=== PATIENT | female | born 1950 | race Caucasian/White ===

== ENCOUNTER 2017-04-14 06:55 | Inpatient (IN) | payer MEDICARE ==
[2017-04-03 16:39] LABS: ASCORBIC ACID (UR NOT ORDER) NEG (NEG); BILIRUBIN, URINE NEGATIVE (NEG); KETONE, URINE NEGATIVE (NEG); LEUKOCYTE ESTERASE(NOT OR TRACE (NEG); WBC (NOT ORDERED) (RFLEX) < 1 (0-5)
[2017-04-03 17:22] LABS: BASOPHILS 0.2 %; BASOPHILS ABSOLUTE 0.02 10/3/uL (0.0-0.16); EOSINOPHILS 2.2 %; HEMATOCRIT 40.9 % (36.0-48.0); HEMOGLOBIN 12.9 g/dL (12.0-16.0); IMMATURE GRANULOCYTES 0.2 %; IMMATURE GRANULOCYTES ABSOLUTE 0.02 10/3/uL (0.0-0.11); LYMPHOCYTES 35.3 %; MEAN CORPUS HGB CONC 31.5 g/dL (32.0-36.0); MEAN CORPUSCULAR HEMOGLOB 27.7 pg (26.0-34.0); MEAN CORPUSCULAR VOLUME 87.8 fL (80-100); MEAN PLATELET VOLUME 9.4 fL (9.2-13.0); MONOCYTES 7.3 %; MONOCYTES ABSOLUTE 0.66 10/3/uL (0.21-1.20); NEUTROPHILS 54.8 %; NEUTROPHILS ABSOLUTE 4.96 10/3/uL (2.02-8.40); PLATELET COUNT 268 10/3/uL (150-400); RBC DISTRIBUTION WIDTH 14.1 % (12.0-16.0); RED CELL COUNT 4.66 10/6/uL (4.0-5.6); WHITE BLOOD CELLS 9.1 10/3/uL (4.5-10.5)
[2017-04-03 17:24] LABS: MANUAL DIFF NO %
[2017-04-03 17:26] LABS: INTERNATIONAL NORMAL RATI 1.1 UNITS (-); PROTIME (NOT ORD) 14.5 SEC (12.0-14.5)
[2017-04-03 17:40] LABS: % IRON SAT 24 % (20-50); BUN (BLOOD UREA NITROGEN) 15 MG/DL (6-23); CALCIUM, SERUM 9.7 MG/DL (8.5-10.4); CHLORIDE, SERUM 107 MMOL/L (96-112); CO2 (CARBON DIOXIDE) 29 MMOL/L (24-34); CREATININE 0.97 MG/DL (0.55-1.02); GFR AFRICAN AMERICAN 70 ML/MIN (>=60); GFR NON AFRICAN AMERICAN 60 ML/MIN (>=60); GLUCOSE, SERUM 90 MG/DL (60-99); IRON BINDING CAPACITY 376 MCG/DL (225-410); IRON, SERUM 89 MCG/DL (35-150); POTASSIUM, SERUM 4.4 MMOL/L (3.5-5.3); SGOT(AST) 20 U/L (5-40); SGPT(ALT) 27 U/L (5-65); SODIUM, SERUM 142 MMOL/L (135-148); TOTAL BILIRUBIN 0.6 MG/DL (0-1.2); TOTAL PROTEIN 7.3 G/DL (6.0-8.5)
[2017-04-03 17:41] LABS: A/G RATIO 1.2 (0.7-1.9); ALKALINE PHOSPHATASE 120 U/L (45-117); GLOBULIN 3.3 G/DL (2.5-4.1)
--- NOTE | ~2017-04-14 | DS ---
Discharge Summary [facility] [address] [place]. [address] NAME: LO BLUNT : 49 STATUS : DIS IN PAT#: [id number] AGE: 67 ADM/REG DATE : 04/14/17 MR#: [id number] REPORT SERV DATE: 06/28/17 DICTATED BY: YAZMIN FALCON DATE: 06/27/17 REPORT STATUS : Draft TRANSCRIBED BY: TRACEY DATE: 06/27/17 Data Collection from hospitalization DISCHARGE DIAGNOSES: 1. Coronary artery disease. 2. Hyperlipidemia. 3. Hypertension. 4. Peripheral vascular disease. 5. Chronic obstructive pulmonary disease. 6. Gastroesophageal reflux disease. 7. Tobacco use. CONSULTATIONS: 1. Jannie Villa M.D. 2. Zenon Valenzuela M.D. PROCEDURES PERFORMED: Coronary artery bypass grafting x5 with left internal mammary artery to the left anterior descending artery, reverse saphenous vein graft placed to the second diagonal, right internal mammary artery placed to the second obtuse marginal, reverse saphenous vein graft placed to the posterior descending artery, reverse saphenous vein graft placed to the posterolateral branch vessel; bilateral internal mammary artery harvest; endoscopic vein harvest of the saphenous vein from the right leg; and transesophageal echocardiography on 04/14/2017. MEDICATIONS: Xanax 0.5 mg three times a day as needed, vitamin C 1000 mg twice a day, aspirin 81 mg every morning, Lipitor 40 mg at bedtime, Os-Jack Plus D 500 mg daily, vitamin D3 2000 units daily, Plavix 75 mg daily, Pepcid 20 mg twice a day, Lasix 20 mg daily, [place] 5/325 one to two tablets every four hours as needed, levothyroxine 75 mcg daily, Lopressor 12.5 mg daily, MiraLAX powder one packet daily, Klor-Con 20 mEq daily, and Ultram 100 mg three times a day as needed. CONDITION AT DISCHARGE: Stable. DISPOSITION: The patient was discharged home on a low-sodium, low-cholesterol, cardiac diet with activities as instructed. She would follow up with Dr. Zenon Valenzuela on 05/19/2017. She would follow up with Wesley Watson on 06/05/2017. She would follow up for cardiac rehab on 05/31/2017. HOSPITAL COURSE: This is a 66-year-old female who has a significant peripheral vascular disease and had undergone multiple peripheral interventions by Dr. Donald Bender. She was undergoing evaluation for possible left leg bypass. In preparation for this, she underwent a stress test, which revealed abnormalities. She was referred to Dr. Valenzuela and an eventual cardiac catheterization demonstrated severe three-vessel coronary artery disease. Her ventricular function was preserved with an ejection fraction greater than 50%. She had significant complaints of dyspnea with exertion and lower extremity claudication. She does have occasional chest discomfort, which she described as sharp, intermittent, and nonreproducible and noticed it more at night. However, since being started on isosorbide, these symptoms had improved. The patient had undergone echocardiography, which demonstrated Discharge Summary [address] [address] NAME: LO BLUNT : 49 STATUS : DIS IN [facility]#: [id number] AGE: 67 ADM/REG DATE : 04/14/17 MR#: [id number] REPORT SERV DATE: 06/28/17 DICTATED BY: YAZMIN FALCON DATE: 06/27/17 REPORT STATUS : Draft TRANSCRIBED BY: TRACEY DATE: 06/27/17 good ventricular function with no significant valvular pathology. She also underwent pulmonary function testing because she is an active smoker and this actually showed surprisingly good pulmonary function with FEV1 of greater than 2 liters. Treatment options were discussed and it was elected to proceed with surgical intervention. She was admitted to the hospital at this time for further evaluation and treatment. Upon admission, she was taken to the operating room where she underwent the above-mentioned procedure. She tolerated this well, and there were no complications. On postop day #1, she was up sitting in a chair. She was doing well. Chest x-ray showed left pleural effusion, which was unchanged. White count was 14.3. A dose of IV Lasix was given. Blood pressure was well controlled. On 04/16/2017, she was ambulating in the pascual. She was doing well. Chest x-ray showed small left effusion. Lasix and KCl were given. Hemoglobin A1c was 6.1%. Insulin drip continued. Pacing wires and medial chest tubes were discontinued. Blood pressure was well controlled. The patient was seen by Dr. Jannie Villa regarding postop hyperglycemia. She was tolerating her diet. Since surgery, she had been on an insulin drip with very well controlled blood sugar. She does not have a history of diabetes nor does she take any medication. Her hemoglobin A1c was 6.1. Insulin drip was going to be discontinued. Accu-Cheks would be performed before meals and at bedtime. Level 1 sliding scale insulin was going to be provided. Diet and lifestyle modification was discussed extensively with the patient. On 04/17/2017, she was doing well. She was ambulating in the halls. Her dressings were clean, dry, and intact. Blood pressure was well controlled. Lipitor was continued. She was in a normal sinus rhythm. She was seen in consultation by Dr. Zenon Valenzuela. She had no atrial fibrillation/atrial tachycardia. Her blood pressure was controlled. Pain was controlled. She was on aspirin, statin, and Plavix. White count was 11.8. Creatinine level 0.76. INR level was 1.2. The next day, she continued to do well. Chest x-ray showed improvement of the left effusion. She had 1+ pedal edema. Blood pressure was well controlled. Discharge planning was performed. On 04/19/2017, she was alert and cooperative. She had vague episode of discomfort that she said she felt was secondary to taking a lot of deep breaths. She was in a sinus rhythm. Her lungs were clear. Discharge instructions were given. Due to her improved and stable condition, she was discharged home to be followed by home health care with the above-stated instructions. Information collected by: Debby Huang I submit the above information as my discharge summary. TG/MODL Yazmin Falcon M.D. / [id number] CC: Elif Powers M.D. Discharge Summary [address] [address] NAME: LO BLUNT : 49 STATUS : DIS IN PAT#: [id number] AGE: 67 ADM/REG DATE : 04/14/17 MR#: [id number] REPORT SERV DATE: 06/28/17 DICTATED BY: YAZMIN FALCON DATE: 06/27/17 REPORT STATUS : Draft TRANSCRIBED BY: MODL DATE: 06/27/17 Zenon Valenzuela M.D.
--- NOTE | ~2017-04-14 | CN ---
Consultation Report [facility] [address] [place]. [address] NAME: LO BLUNT : 49 STATUS : ADM IN PAT#: [id number] AGE: 66 ADM/REG DATE : 04/14/17 MR#: [id number] REPORT SERV DATE: 04/16/17 DICTATED BY: JANNIE VILLA DATE: 04/16/17 REPORT STATUS : Draft TRANSCRIBED BY: MODL DATE: 04/16/17 CONSULT DATE OF CONSULTATION: REASON FOR CONSULT: Medical consult for postop hyperglycemia. HISTORY OF PRESENT ILLNESS: This is a very pleasant, 66 years female, who has a past medical history of coronary artery disease, peripheral vascular disease, hypertension, hyperlipidemia, hypothyroidism, tobacco abuse, that recently underwent an evaluation for peripheral vascular disease. She underwent a stress test which has been abnormal. She has been referred to Cardiology and eventually she has a cardiac catheterization that demonstrated severe three-vessel coronary artery disease. As a result, the patient has been referred for cardiac bypass and during this hospitalization on 04/14/2017, she underwent a CABG x3. Postoperatively, she was doing great, she has been transferred to the floor. Currently, she denies any complaints of chest pain or shortness of breath. No PND or orthopnea. Tolerating diet. She has been since surgery on insulin drip with very well blood sugar control. The patient does not have a history of diabetes nor she takes any medications. The patient's hemoglobin A1c that has been checked during this hospitalization has been 6.1. Hospitalist has been consulted for management of postop hyperglycemia. PAST MEDICAL HISTORY: Significant for hypertension, also peripheral vascular disease, hyperlipidemia, COPD, GERD, and tobacco abuse. PAST SURGICAL HISTORY: Appendectomy, breast implants and explant, partial hysterectomy, rectal sphincter repair, and tubal ligation. SOCIAL HISTORY: She is . She has been a prior smoker. Alcohol socially. No IV drugs. FAMILY HISTORY: Significant for heart disease and diabetes. HOME MEDICATIONS: Xanax, Norvasc, aspirin, Lipitor, calcium and vitamin D, cholecalciferol, Plavix, Bonnie, Imdur, levothyroxine, MiraLAX, potassium chloride, and tramadol. REVIEW OF SYSTEMS: A 14-point review of systems has been obtained and pertinent positive has been listed into the history of present illness. Otherwise, negative except those underlying above. PHYSICAL EXAMINATION: VITAL SIGNS: Currently, the patient is afebrile. Blood pressure 128/62, heart rate 76, respiratory rate 17, saturating 93% on 2 L of oxygen. Her sugars were 126, 103, 107, 190, 134, and 100 on insulin drip. GENERAL: She is a very pleasant, well-developed, well-nourished female, in no acute Consultation Report [address] [place]. [address] NAME: LO BLUNT : 49 STATUS : ADM IN PAT#: [id number] AGE: 66 ADM/REG DATE : 04/14/17 MR#: [id number] REPORT SERV DATE: 04/16/17 DICTATED BY: JANNIE VILLA DATE: 04/16/17 REPORT STATUS : Draft TRANSCRIBED BY: TRACEY DATE: 04/16/17 distress. She is alert and oriented x3. She is nonfocal. She follows all her commands appropriately. HEENT: Shows pupils equal, round, and reactive to light. Extraocular movements intact. NECK: No JVD. No lymphadenopathy. No thyromegaly appreciated. CHEST: Eval shows bilateral air entry. Clear anteroposterior. No wheezes, crackles, or rhonchi appreciated. CARDIOVASCULAR: She has regular rate and rhythm. S1 and S2 positive. No S3, no S4. No murmurs, rubs, or gallops appreciated. ABDOMEN: Soft with positive bowel sounds. Nontender. No guarding or rebound. EXTREMITIES: No clubbing, cyanosis, or edema. NEUROLOGIC: The patient is alert and oriented x3. Nonfocal. She follows all her commands appropriately. LABORATORY DATA: Labs from today include sodium 145, potassium 4.5, chloride 114, CO2 of 27, BUN 23, creatinine 0.85, and glucose is 115, calcium 8.4, magnesium 2.6. Her hemoglobin A1c has been 6.1, her white count is 20.7, hemoglobin 10.6, hematocrit 32.4, and platelets 154. Her INR on 04/15/2017 was 1.3. Her chest x-ray, PA and lateral, performed from today shows some bibasilar atelectasis and trace left pleural fluid. ASSESSMENT AND PLAN: This is a very pleasant, 66 years old female, with coronary artery disease, status post three-vessel CABG, with postop hyperglycemia. We are going to discontinue the insulin drip. Perform Accu-Chek before meals and at bedtime, sliding scale insulin subcutaneously level 1. Diet and lifestyle modification has been discussed extensively with the patient as well. Further workup and recommendation pending above. Thank you for the consult. We are going to continue to follow with you. It is also worthwhile to note that the patient is going to be followed up by Hospitalist Service. CF/MODL Jannie Villa M.D. / [id number] CC: Ace Falcon M.D.
--- NOTE | ~2017-04-14 | OP ---
Record Of Operation [address] [place]. [address] NAME: LO BLUNT : 49 STATUS : ADM IN PAT#: [id number] AGE: 66 ADM/REG DATE : 04/14/17 MR#: [id number] REPORT SERV DATE: 04/14/17 DICTATED BY: YAZMIN FALCON DATE: 04/14/17 REPORT STATUS : Draft TRANSCRIBED BY: MODL DATE: 04/14/17 DATE OF PROCEDURE: 04/14/2017 PREOPERATIVE DIAGNOSES: 1. Coronary artery disease. 2. Peripheral vascular disease. 3. Hypertension. 4. Hyperlipidemia. 5. Hypothyroidism. 6. Tobacco abuse. POSTOPERATIVE DIAGNOSES: 1. Coronary artery disease. 2. Peripheral vascular disease. 3. Hypertension. 4. Hyperlipidemia. 5. Hypothyroidism. 6. Tobacco abuse. PROCEDURES PERFORMED: 1. Coronary artery bypass grafting x5, left internal mammary artery placed to left anterior descending, reverse saphenous vein graft placed to the second diagonal, right internal mammary artery placed to the second obtuse marginal, reverse saphenous vein graft placed to the posterior descending artery, reverse saphenous vein graft placed to the posterolateral branch vessel. 2. Bilateral internal mammary artery harvest. 3. Endoscopic vein harvest of saphenous vein from the right leg. 4. Transesophageal echocardiography. SURGEON: Yazmin Falcon M.D. ASSISTANTS: Julien Mina and Mable Brooks. ANESTHESIA: General with Dr. Merrill. CONTINUOUS MINER OPERATOR HELPER: Zenon Valenzuela M.D. VASCULAR SURGEON: Donald Bender M.D. PRIMARY CARE: Mahnaz Levin M.D. INDICATIONS: This is a 66-year-old female who has significant peripheral vascular disease, has had multiple peripheral interventions by Dr. Donald Bender. She was undergoing evaluation for possible left leg bypass. In preparation for this, she underwent a stress test, which showed abnormalities. She was referred to Dr. Valenzuela and an eventual cardiac catheterization demonstrated severe three-vessel coronary artery disease. Her ventricular Record Of [address] [place]. [address] NAME: LO BLUNT : 49 STATUS : ADM IN PAT#: [id number] AGE: 66 ADM/REG DATE : 04/14/17 MR#: [id number] REPORT SERV DATE: 04/14/17 DICTATED BY: YAZMIN FALCON DATE: 04/14/17 REPORT STATUS : Draft TRANSCRIBED BY: MODL DATE: 04/14/17 function was preserved with an ejection fraction greater than 50%. The patient had significant complaints of dyspnea with exertion and lower extremity claudication. She does have occasional chest discomfort, which she describes as sharp, intermittent, and nonreproducible and notices more so at night. However, since being started on isosorbide, these symptoms have improved. The patient had undergone echocardiography, demonstrated good ventricular function with no significant valvular pathology. She also underwent pulmonary function testing because she is an active smoker and this actually showed surprisingly good pulmonary function with an FEV1 of greater than 2 liters. We saw the patient discuss possible coronary artery bypass grafting with her, and after discussion of operations, its indication and risks, she wished to proceed. STS predicted risk of mortality less than 1%, risk of morbidity mortality less than 8%. FINDINGS AT OPERATION: 1. Cross-clamp 104 minutes, total pump time 120 minutes. 2. The LAD was 1.75 mm mildly diseased vessel. A 2 to 2.5 mm ELENA was anastomosed to it with good runoff. 3. The second diagonal was 1.75 mm and heavily diseased. A 4 mm RSVG was anastomosed to it with good runoff. 4. The second obtuse marginal was 1.5 mm and mildly diseased. A 2 mm right internal mammary artery was anastomosed to it with good runoff. 5. The posterior descending artery was 1.75 mm and heavily diseased. A 4 mm RSVG was anastomosed to it with good runoff. 6. The posterolateral branch vessel was 1.5 mm and moderately diseased. A 3 mm RSVG was anastomosed to it with good runoff. 7. The vein quality was okay. We did obtain adequate conduit for bypass material. We did have to use both mammary arteries because of number of vessels that we wanted to bypass and the amount of conduit we had. We did try to preserve conduit in the left leg for future use for peripheral bypass. All grafts did have good Doppler signal at the end of the case. 8. MADAI demonstrated good ventricular function with no significant valvular pathology. PATHOLOGIC SPECIMENS: None. DESCRIPTION OF PROCEDURE: The patient was brought to the operating suite where general anesthesia was induced and airway secured with an endotracheal tube. Lines were secured by Anesthesia and Mann catheter was placed. The patient's chest, abdomen, groin, and legs were prepped with Hibiclens and ChloraPrep and draped with Ioban sterile sheets. MADAI probe was placed by Anesthesia and examination carried out as discussed above. The saphenous vein was harvested from the right leg using endoscopic technique. Briefly, the vein was cut directly down upon through a 2 cm incision placed at the medial aspect of the right knee. Then, using VasoView trocars, the vessel was dissected from the surrounding subcutaneous tissue and fat. The side branches were identified, ligated, and divided with cautery. Once adequate length of vein had been dissected, a counter incision was made up in the groin and in the lower leg where the vein was ligated, divided, and brought out through the knee incision. The vein quality was not good, it was okay. There were segments that Record Of Operation [facility] [address] [place]. [address] NAME: LO BLUNT : 49 STATUS : ADM IN [facility]#: [id number] AGE: 66 ADM/REG DATE : 04/14/17 MR#: [id number] REPORT SERV DATE: 04/14/17 DICTATED BY: YAZMIN FALCON DATE: 04/14/17 REPORT STATUS : Draft TRANSCRIBED BY: TRACEY DATE: 04/14/17 have mild dilatation up to 4 mm and then very small and some unacceptable segments. We did find enough areas of the conduit that were suitable for bypass graft material. The leg wounds were made hemostatic and closed in layers of absorbable suture and skin closed in a subcuticular fashion. Next, a midline sternal incision was made and the sternum was opened with a saw. The left hemithorax was elevated, and the endothoracic fascia was incised. Side branch of the GEORGI were clipped and divided. Once the left mammary was completely dissected, chest tube was placed on this side. The shoulder retractor was reversed and the right hemithorax was elevated. The right endothoracic fascia was incised and the right internal mammary artery harvested and dissected in an identical fashion. The side branches on this side were like likewise clipped and divided with cautery. Once the right mammary was completely dissected, the patient was anticoagulated with heparin. Chest tube was placed in the right pleural cavity and secured to the skin. Both GEORGI vessels were then clipped and divided distally. There was good flow through both the vessels and their pedicles were infiltrated with papaverine. Next, the Kulwant retractor was placed in the pericardium over from the innominate vein to the diaphragm where it was T'd and tacked to the side of the chest wall. Cannulation pursestring sutures were placed and cannulation was carried out in a routine manner. A retrograde cardioplegia cannula was placed in the coronary sinus. When all was in readiness, the patient was placed on cardiopulmonary bypass. The distal targets were marked out on the heart as described in the findings. Then, a heart support was placed. The aorta was crossclamped and an initial dose of cold blood cardioplegia solution was given in a combination of antegrade and retrograde fashion, then in a retrograde manner following proximal anastomoses. Following the first dose of cardioplegia, the heart was positioned for the PDA graft. Arteriotomy was made. The vein graft was trimmed and anastomosed to it with 7-0 Prolene. This vein graft was measured back to the right side of the ascending aorta where it was divided. We then positioned heart for the diagonal graft. Arteriotomy was made. The vein graft was trimmed and anastomosed it with 7-0 Prolene. This vein graft was likewise measured to the left side of the ascending aorta where it was divided. Next, the proximal ends of the two vein grafts were anastomosed to 5 mm punch aortotomy with a 6-0 Prolene. Another dose of cardioplegia was given. We positioned the heart for the posterolateral branch graft. Arteriotomy was made and the vein graft was trimmed and anastomosed to it with 7-0 Prolene. This vein graft was measured to the ascending aorta where it was divided and anastomosed to a 4.4 mm punch aortotomy with 6-0 Prolene. Another dose of cardioplegia was given, and we positioned the heart for the obtuse marginal graft. Arteriotomy was made in the second OM. The right mammary artery was brought into the pericardial space through a notch in the pericardium near the SVC. Care was taken to avoid injury to the phrenic nerve. The GEORGI pedicle was then passed posterior to the aorta and through the transverse sinus to lay adjacent to the obtuse marginal vessel. The GEORGI was opened and anastomosed to the obtuse marginal vessel with a running suture of 8-0 Prolene. The endothoracic fascia was tacked to the epicardium. Doppler demonstrated good flow and a bulldog clamp was applied. Another dose of cardioplegia was given and warming was begun. Arteriotomy was made in the Record Of Operation [address] [place]. [address] NAME: LO BLUNT : 49 STATUS : ADM IN PAT#: [id number] AGE: 66 ADM/REG DATE : 04/14/17 MR#: [id number] REPORT SERV DATE: 04/14/17 DICTATED BY: YAZMIN FALCON DATE: 04/14/17 REPORT STATUS : Draft TRANSCRIBED BY: TRACEY DATE: 04/14/17 mid LAD. The left mammary was brought out the left chest through a notch in the pericardium over the pulmonary artery. The GEORGI was opened and anastomosed to the LAD with a running suture of 8-0 Prolene. The endothoracic fascia was tacked to the epicardium. The patient was placed in Trendelenburg and a final dose of warm blood cardioplegia was given in a retrograde fashion. Ventricular and atrial pacing wires were placed. Following the last dose of cardioplegia and deairing of the aorta, the aortic cross clamp was removed. The distal and proximal anastomoses and suture lines were inspected and made hemostatic. Doppler demonstrated good flow through the grafts. The patient resumed a slow sinus rhythm and was paced atrially at rate of 80. Ventilation was begun. When the heart demonstrated good contractility, it was allowed to fill and eject. When deairing was completed, the patient was taken out of Trendelenburg and the ascending aortic vent removed and these pursestring sutures tied and reinforced. The patient was weaned from cardiopulmonary bypass with minimal inotropic support. The venous cannulas were removed and these pursestring sutures tied. MADAI examination demonstrated good ventricular function, no significant valvular pathology. Protamine was administered by Anesthesia, and following a period of hemodynamic stability, the aortic cannula was removed and these pursestring sutures tied and reinforced. The patient continued do well and chest irrigated copiously with saline. Meticulous hemostasis was obtained. Hemasorb was placed along the cut edge of the sternum. Once hemostasis was assured, the pericardium was draped over the anterior surface of heart and tacked into position. Doppler demonstrated good flow through the grafts following protamine administration. Then, chest tubes were placed and the sternum reapproximated with eight sternal wires. The clavipectoral fascia and linea alba closed with Stratafix. The subcutaneous tissue closed and skin closed in a subcuticular fashion. The patient tolerated the procedure well, and there were no complications. Sponge and needle counts were correct. DISPOSITION: The patient left intubated, sedated, and transported to the Intensive Care Unit in stable condition. DALILA/TRACEY Yazmin Falcon M.D. / [id number] CC: Elif Powers M.D. Record Of [address] [address] NAME: LO BLUNT : 49 STATUS : ADM IN [facility]#: [id number] AGE: 66 ADM/REG DATE : 04/14/17 MR#: [id number] REPORT SERV DATE: 04/14/17 DICTATED BY: YAZMIN FALCON DATE: 04/14/17 REPORT STATUS : Draft TRANSCRIBED BY: TRACEY DATE: 04/14/17 Elif Garduno M.D.
[~2017-04-14 06:55] MED LIST: ALLEGRA180 PO; CALCIUM + VIT D3 PO; DSS PO; HALF81 PO; HCTZ25B PO; HYDROCHLOROT25 MG PO; IMDUR30 PO; K-TABS10 MEQ PO; LEVOTHYROXIN75 MCG PO; LEVOTHYROXIN88 MCG PO; LIPITOR40 PO; MIRALAX POWDER1 PKT PO; NORV25 PO; OS500+D PO; PLAVIX PO; PRILOSEC OTC20 MG PO; SYMBICORT 160/41 INH INH; TRAZODONE150 MG PO; ULTRAM50 PO; VITAMIN D31000 UNIT PO; X5 PO; ZOCOR10 PO
[2017-04-14 08:11] LABS: TEG - ANGLE 71.6 DEG (53-72); TEG - RATE 5.4 MIN (5.0-10.0)
[2017-04-14 08:23] LABS: TEG - COAGULATION INDEX 2.1 (-3 TO 3); TEG - MAXIMUM AMPLITUDE 68.5 MM (50-70)
[2017-04-14 08:36] LABS: MAX AMP (ADP) 59.8 MM (35-68)
[2017-04-14 08:44] LABS: TEG PLAVIX/EFFIENT/TICLID(ADP) 15.8 % INHIB (< 40)
[2017-04-14 19:18] LABS: BE (BASE EXCESS) -5.2 MEQ/L (0 +/- 2.5); CARBOXYHEMOGLOBIN 0.3 % (0-3); HCO3 (ACTUAL BICARBONATE) 19.7 MEQ/L (23-27); HEMOBLOGIN CONTENT 12.2 G/DL (12-16); INSTRUMENT SERIAL # 11843; METHEMOGLOBIN 0.6 % (0-3); MODE SIMV; O2 CONTENT 17.4 VOL% (18-24); OPERATOR ID 13744; PCO2 (CO2 TENSION) 36 MMHG (35-45); PO2 (O2 TENSION) 258 MMHG (79-93); SAMPLE Arterial; TIDAL VOLUME 700 ML; pH 7.35 (7.37-7.43)
[2017-04-14 19:53] LABS: BASOPHILS 0.1 %; BASOPHILS ABSOLUTE 0.02 10/3/uL (0.0-0.16); EOSINOPHILS 0.3 %; EOSINOPHILS ABSOLUTE 0.06 10/3/uL (0.0-0.53); HEMOGLOBIN 11.3 g/dL (12.0-16.0); IMMATURE GRANULOCYTES 0.4 %; IMMATURE GRANULOCYTES ABSOLUTE 0.08 10/3/uL (0.0-0.11); LYMPHOCYTES 9.9 %; LYMPHOCYTES ABSOLUTE 1.94 10/3/uL (0.67-4.30); MEAN CORPUS HGB CONC 32.8 g/dL (32.0-36.0); MEAN CORPUSCULAR HEMOGLOB 28.5 pg (26.0-34.0); MEAN CORPUSCULAR VOLUME 86.6 fL (80-100); MEAN PLATELET VOLUME 9.2 fL (9.2-13.0); MONOCYTES 5.9 %; MONOCYTES ABSOLUTE 1.15 10/3/uL (0.21-1.20); NEUTROPHILS 83.4 %; NEUTROPHILS ABSOLUTE 16.33 10/3/uL (2.02-8.40); RBC DISTRIBUTION WIDTH 14.2 % (12.0-16.0); RED CELL COUNT 3.97 10/6/uL (4.0-5.6)
[2017-04-14 19:55] LABS: HEMATOCRIT 34.4 % (36.0-48.0); MANUAL DIFF NO %; PLATELET COUNT 150 10/3/uL (150-400); WHITE BLOOD CELLS 19.6 10/3/uL (4.5-10.5)
[2017-04-14 19:58] LABS: BUN (BLOOD UREA NITROGEN) 12 MG/DL (6-23); CHLORIDE, SERUM 119 MMOL/L (96-112); GFR AFRICAN AMERICAN 60 ML/MIN (>=60); GFR NON AFRICAN AMERICAN 52 ML/MIN (>=60); GLUCOSE, SERUM 96 MG/DL (60-99); SODIUM, SERUM 148 MMOL/L (135-148)
[2017-04-14 19:59] LABS: CALCIUM, SERUM 7.4 MG/DL (8.5-10.4); CO2 (CARBON DIOXIDE) 23 MMOL/L (24-34)
[2017-04-14 20:02] LABS: INTERNATIONAL NORMAL RATI 1.7 UNITS (-); PARTIAL THROMBO TIME 34.3 SEC (22.5-37.2)
[2017-04-14 20:03] LABS: PROTIME (NOT ORD) 19.6 SEC (12.0-14.5)
[2017-04-14 23:20] LABS: BE (BASE EXCESS) -4.2 MEQ/L (0 +/- 2.5); CARBOXYHEMOGLOBIN 0.2 % (0-3); DEVICE NC; HCO3 (ACTUAL BICARBONATE) 21.1 MEQ/L (23-27); HEMOBLOGIN CONTENT 12.9 G/DL (12-16); INSTRUMENT SERIAL # 11843; METHEMOGLOBIN 0.5 % (0-3); OPERATOR ID 13744; PCO2 (CO2 TENSION) 39 MMHG (35-45); PO2 (O2 TENSION) 81 MMHG (79-93); SAMPLE Arterial; pH 7.35 (7.37-7.43)
[2017-04-15 01:13] LABS: BASOPHILS 0.1 %; BASOPHILS ABSOLUTE 0.01 10/3/uL (0.0-0.16); EOSINOPHILS 0 %; HEMATOCRIT 35.5 % (36.0-48.0); HEMOGLOBIN 11.8 g/dL (12.0-16.0); IMMATURE GRANULOCYTES 0.4 %; IMMATURE GRANULOCYTES ABSOLUTE 0.06 10/3/uL (0.0-0.11); LYMPHOCYTES 10.6 %; LYMPHOCYTES ABSOLUTE 1.46 10/3/uL (0.67-4.30); MANUAL DIFF NO %; MEAN CORPUS HGB CONC 33.2 g/dL (32.0-36.0); MEAN CORPUSCULAR HEMOGLOB 28.7 pg (26.0-34.0); MEAN CORPUSCULAR VOLUME 86.4 fL (80-100); MEAN PLATELET VOLUME 9.2 fL (9.2-13.0); MONOCYTES 4.7 %; MONOCYTES ABSOLUTE 0.65 10/3/uL (0.21-1.20); NEUTROPHILS 84.2 %; NEUTROPHILS ABSOLUTE 11.62 10/3/uL (2.02-8.40); PLATELET COUNT 137 10/3/uL (150-400); RBC DISTRIBUTION WIDTH 14.3 % (12.0-16.0); RED CELL COUNT 4.11 10/6/uL (4.0-5.6); WHITE BLOOD CELLS 13.8 10/3/uL (4.5-10.5)
[2017-04-15 01:28] LABS: BUN (BLOOD UREA NITROGEN) 15 MG/DL (6-23); CALCIUM, SERUM 7.9 MG/DL (8.5-10.4); CHLORIDE, SERUM 122 MMOL/L (96-112); CO2 (CARBON DIOXIDE) 23 MMOL/L (24-34); CREATININE 0.85 MG/DL (0.55-1.02); GFR AFRICAN AMERICAN 82 ML/MIN (>=60); GFR NON AFRICAN AMERICAN 71 ML/MIN (>=60); GLUCOSE, SERUM 99 MG/DL (60-99); POTASSIUM, SERUM 4.6 MMOL/L (3.5-5.3); SODIUM, SERUM 150 MMOL/L (135-148)
[2017-04-15 04:39] LABS: BASOPHILS 0 %; EOSINOPHILS 0 %; HEMATOCRIT 35.7 % (36.0-48.0); HEMOGLOBIN 11.8 g/dL (12.0-16.0); IMMATURE GRANULOCYTES 0.4 %; IMMATURE GRANULOCYTES ABSOLUTE 0.05 10/3/uL (0.0-0.11); LYMPHOCYTES 10.7 %; LYMPHOCYTES ABSOLUTE 1.53 10/3/uL (0.67-4.30); MANUAL DIFF NO %; MEAN CORPUS HGB CONC 33.1 g/dL (32.0-36.0); MEAN CORPUSCULAR HEMOGLOB 28.5 pg (26.0-34.0); MEAN CORPUSCULAR VOLUME 86.2 fL (80-100); MEAN PLATELET VOLUME 9.5 fL (9.2-13.0); MONOCYTES 2.6 %; MONOCYTES ABSOLUTE 0.37 10/3/uL (0.21-1.20); NEUTROPHILS 86.3 %; PLATELET COUNT 148 10/3/uL (150-400); RBC DISTRIBUTION WIDTH 14.5 % (12.0-16.0); RED CELL COUNT 4.14 10/6/uL (4.0-5.6); WHITE BLOOD CELLS 14.3 10/3/uL (4.5-10.5)
[2017-04-15 04:46] LABS: INTERNATIONAL NORMAL RATI 1.3 UNITS (-); PARTIAL THROMBO TIME 30.9 SEC (22.5-37.2)
[2017-04-15 04:49] LABS: BUN (BLOOD UREA NITROGEN) 15 MG/DL (6-23); CALCIUM, SERUM 8.3 MG/DL (8.5-10.4); CHLORIDE, SERUM 121 MMOL/L (96-112); CO2 (CARBON DIOXIDE) 23 MMOL/L (24-34); CREATININE 0.85 MG/DL (0.55-1.02); GFR AFRICAN AMERICAN 82 ML/MIN (>=60); GFR NON AFRICAN AMERICAN 71 ML/MIN (>=60); GLUCOSE, SERUM 116 MG/DL (60-99); POTASSIUM, SERUM 4.6 MMOL/L (3.5-5.3); SODIUM, SERUM 150 MMOL/L (135-148)
[2017-04-15 04:50] LABS: PROTIME (NOT ORD) 16.4 SEC (12.0-14.5)
[2017-04-15 08:27] LABS: HEMATOCRIT 33.9 % (36.0-48.0); HEMOGLOBIN 11.1 g/dL (12.0-16.0)
[2017-04-15 08:37] LABS: POTASSIUM, SERUM 4.2 MMOL/L (3.5-5.3)
[2017-04-15 13:45] LABS: POTASSIUM, SERUM 3.7 MMOL/L (3.5-5.3)
[2017-04-15 17:53] LABS: HEMATOCRIT 33.8 % (36.0-48.0)
[2017-04-16 05:40] LABS: BASOPHILS 0 %; BASOPHILS ABSOLUTE 0.01 10/3/uL (0.0-0.16); EOSINOPHILS 0 %; HEMATOCRIT 32.4 % (36.0-48.0); HEMOGLOBIN 10.6 g/dL (12.0-16.0); IMMATURE GRANULOCYTES 0.5 %; LYMPHOCYTES 11.8 %; LYMPHOCYTES ABSOLUTE 2.44 10/3/uL (0.67-4.30); MANUAL DIFF NO %; MEAN CORPUS HGB CONC 32.7 g/dL (32.0-36.0); MEAN CORPUSCULAR HEMOGLOB 28.9 pg (26.0-34.0); MEAN CORPUSCULAR VOLUME 88.3 fL (80-100); MEAN PLATELET VOLUME 9.7 fL (9.2-13.0); MONOCYTES 10.6 %; MONOCYTES ABSOLUTE 2.19 10/3/uL (0.21-1.20); NEUTROPHILS 77.1 %; NEUTROPHILS ABSOLUTE 15.98 10/3/uL (2.02-8.40); PLATELET COUNT 154 10/3/uL (150-400); RBC DISTRIBUTION WIDTH 15.5 % (12.0-16.0); RED CELL COUNT 3.67 10/6/uL (4.0-5.6); WHITE BLOOD CELLS 20.7 10/3/uL (4.5-10.5)
[2017-04-16 05:50] LABS: BUN (BLOOD UREA NITROGEN) 23 MG/DL (6-23); CALCIUM, SERUM 8.4 MG/DL (8.5-10.4); CHLORIDE, SERUM 114 MMOL/L (96-112); CO2 (CARBON DIOXIDE) 27 MMOL/L (24-34); CREATININE 0.85 MG/DL (0.55-1.02); GFR AFRICAN AMERICAN 82 ML/MIN (>=60); GFR NON AFRICAN AMERICAN 71 ML/MIN (>=60); GLUCOSE, SERUM 115 MG/DL (60-99); POTASSIUM, SERUM 4.5 MMOL/L (3.5-5.3); SODIUM, SERUM 145 MMOL/L (135-148)
[2017-04-16 13:13] LABS: INTERNATIONAL NORMAL RATI 1.3 UNITS (-); PROTIME (NOT ORD) 15.6 SEC (12.0-14.5)
[2017-04-17 06:51] LABS: BASOPHILS 0.1 %; BASOPHILS ABSOLUTE 0.01 10/3/uL (0.0-0.16); EOSINOPHILS 0 %; HEMATOCRIT 31.6 % (36.0-48.0); HEMOGLOBIN 10.2 g/dL (12.0-16.0); IMMATURE GRANULOCYTES 0.2 %; IMMATURE GRANULOCYTES ABSOLUTE 0.03 10/3/uL (0.0-0.11); LYMPHOCYTES 20.4 %; LYMPHOCYTES ABSOLUTE 2.92 10/3/uL (0.67-4.30); MEAN CORPUS HGB CONC 32.3 g/dL (32.0-36.0); MEAN CORPUSCULAR HEMOGLOB 28.4 pg (26.0-34.0); MEAN PLATELET VOLUME 9.7 fL (9.2-13.0); MONOCYTES 8.5 %; MONOCYTES ABSOLUTE 1.22 10/3/uL (0.21-1.20); NEUTROPHILS 70.8 %; PLATELET COUNT 139 10/3/uL (150-400); RBC DISTRIBUTION WIDTH 15.6 % (12.0-16.0); RED CELL COUNT 3.59 10/6/uL (4.0-5.6); WHITE BLOOD CELLS 14.3 10/3/uL (4.5-10.5)
[2017-04-17 06:54] LABS: MANUAL DIFF NO %
[2017-04-17 07:02] LABS: CALCIUM, SERUM 7.9 MG/DL (8.5-10.4); CHLORIDE, SERUM 109 MMOL/L (96-112); CO2 (CARBON DIOXIDE) 27 MMOL/L (24-34); CREATININE 0.84 MG/DL (0.55-1.02); GFR AFRICAN AMERICAN 83 ML/MIN (>=60); GFR NON AFRICAN AMERICAN 72 ML/MIN (>=60); GLUCOSE, SERUM 104 MG/DL (60-99); POTASSIUM, SERUM 4.3 MMOL/L (3.5-5.3); SODIUM, SERUM 143 MMOL/L (135-148)
[2017-04-17 07:03] LABS: BUN (BLOOD UREA NITROGEN) 19 MG/DL (6-23)
[2017-04-17 15:13] LABS: INTERNATIONAL NORMAL RATI 1.2 UNITS (-); PROTIME (NOT ORD) 15.1 SEC (12.0-14.5)
[2017-04-18 05:41] LABS: BASOPHILS 0 %; EOSINOPHILS 0.3 %; EOSINOPHILS ABSOLUTE 0.03 10/3/uL (0.0-0.53); HEMATOCRIT 30.3 % (36.0-48.0); IMMATURE GRANULOCYTES 0.3 %; IMMATURE GRANULOCYTES ABSOLUTE 0.03 10/3/uL (0.0-0.11); LYMPHOCYTES 20.4 %; LYMPHOCYTES ABSOLUTE 2.41 10/3/uL (0.67-4.30); MEAN CORPUSCULAR HEMOGLOB 28.6 pg (26.0-34.0); MEAN CORPUSCULAR VOLUME 86.6 fL (80-100); MONOCYTES 9.2 %; MONOCYTES ABSOLUTE 1.09 10/3/uL (0.21-1.20); NEUTROPHILS 69.8 %; NEUTROPHILS ABSOLUTE 8.26 10/3/uL (2.02-8.40); PLATELET COUNT 145 10/3/uL (150-400); RBC DISTRIBUTION WIDTH 15.4 % (12.0-16.0); WHITE BLOOD CELLS 11.8 10/3/uL (4.5-10.5)
[2017-04-18 05:46] LABS: MANUAL DIFF NO %
[2017-04-18 05:51] LABS: CHLORIDE, SERUM 109 MMOL/L (96-112); CO2 (CARBON DIOXIDE) 30 MMOL/L (24-34); CREATININE 0.76 MG/DL (0.55-1.02); GFR AFRICAN AMERICAN 94 ML/MIN (>=60); GFR NON AFRICAN AMERICAN 81 ML/MIN (>=60); GLUCOSE, SERUM 102 MG/DL (60-99); POTASSIUM, SERUM 3.7 MMOL/L (3.5-5.3); SODIUM, SERUM 144 MMOL/L (135-148)
[2017-04-18 05:52] LABS: BUN (BLOOD UREA NITROGEN) 14 MG/DL (6-23)
[2017-04-19 04:51] LABS: BASOPHILS 0.1 %; BASOPHILS ABSOLUTE 0.01 10/3/uL (0.0-0.16); EOSINOPHILS 3.3 %; EOSINOPHILS ABSOLUTE 0.39 10/3/uL (0.0-0.53); HEMOGLOBIN 10.4 g/dL (12.0-16.0); IMMATURE GRANULOCYTES 0.3 %; IMMATURE GRANULOCYTES ABSOLUTE 0.03 10/3/uL (0.0-0.11); LYMPHOCYTES 23.6 %; LYMPHOCYTES ABSOLUTE 2.79 10/3/uL (0.67-4.30); MEAN CORPUS HGB CONC 32.5 g/dL (32.0-36.0); MEAN CORPUSCULAR HEMOGLOB 28.1 pg (26.0-34.0); MEAN CORPUSCULAR VOLUME 86.5 fL (80-100); MEAN PLATELET VOLUME 9.9 fL (9.2-13.0); MONOCYTES 8.1 %; MONOCYTES ABSOLUTE 0.96 10/3/uL (0.21-1.20); NEUTROPHILS 64.6 %; NEUTROPHILS ABSOLUTE 7.65 10/3/uL (2.02-8.40); PLATELET COUNT 183 10/3/uL (150-400); RBC DISTRIBUTION WIDTH 15.4 % (12.0-16.0); WHITE BLOOD CELLS 11.8 10/3/uL (4.5-10.5)
[2017-04-19 04:55] LABS: MANUAL DIFF NO %
[2017-04-19 04:59] LABS: BUN (BLOOD UREA NITROGEN) 15 MG/DL (6-23); CALCIUM, SERUM 8.2 MG/DL (8.5-10.4); CHLORIDE, SERUM 109 MMOL/L (96-112); CO2 (CARBON DIOXIDE) 27 MMOL/L (24-34); CREATININE 0.87 MG/DL (0.55-1.02); GFR AFRICAN AMERICAN 80 ML/MIN (>=60); GFR NON AFRICAN AMERICAN 69 ML/MIN (>=60); GLUCOSE, SERUM 101 MG/DL (60-99); POTASSIUM, SERUM 3.7 MMOL/L (3.5-5.3); SODIUM, SERUM 142 MMOL/L (135-148)
[2017-04-19] MEDS ORDERED: LEVOTHYROXIN75 MCG PO (12:15)
[2017-04-19] MEDS ORDERED: VITC500 PO (12:16)
[2017-04-19] MEDS ORDERED: L20 PO (12:18)
[2017-04-19] MEDS ORDERED: PEP20 PO (12:18)
[2017-04-19] MEDS ORDERED: LOP25 PO (12:20)
[2017-04-19] MEDS ORDERED: KLOR-CON M2020 MEQ PO (12:21)
[2017-04-19] MEDS ORDERED: NORCO1 TA1 PO (12:24)
== END 2017-04-19 13:03 | disposition home health service (06) | DRG 236 ==
LOC: SDC/OF 06:55 → CVICU 15:07 → 5NO 04-15 17:01
PROVIDERS: Nurse Practitioner Adult Health; Thoracic Surgery (Cardiothoracic Vascular Surgery)
PROC: 0210099 Bypass Coronary Artery, One Artery from Left Internal Mammary with Autologous Venous Tissue, Open Approach (ICD-10-PCS; 2017-04-14)
PROC: 021 Heart and Great Vessels, Bypass (ICD-10-PCS; 2017-04-14)
PROC: 06BP4ZZ Excision of Right Saphenous Vein, Percutaneous Endoscopic Approach (ICD-10-PCS; 2017-04-14)
PROC: 5A1221Z Performance of Cardiac Output, Continuous (ICD-10-PCS; 2017-04-14)
PROC: B246ZZ4 Ultrasonography of Right and Left Heart, Transesophageal (ICD-10-PCS; 2017-04-14)
PROC: 021209W Bypass Coronary Artery, Three Arteries from Aorta with Autologous Venous Tissue, Open Approach (ICD-10-PCS; principal; 2017-04-14 12:00)
DX: I25.119 Atherosclerotic heart disease of native coronary artery with unspecified angina pectoris (principal); J90 Pleural effusion, not elsewhere classified; I73.9 Peripheral vascular disease, unspecified; I10 Essential (primary) hypertension; E78.5 Hyperlipidemia, unspecified; E03.9 Hypothyroidism, unspecified; F17.210 Nicotine dependence, cigarettes, uncomplicated; R73.9 Hyperglycemia, unspecified; K21.9 Gastro-esophageal reflux disease without esophagitis; Z98.51 Tubal ligation status; Z79.82 Long term (current) use of aspirin; Z79.02 Long term (current) use of antithrombotics/antiplatelets
CPT/HCPCS: 36415; 71010; 71020; 80048; 80053; 81001; 82330; 82803; 82805; 82947; 82962; 83036; 83540; 83550; 83735; 84132; 84295; 85014; 85018; 85025; 85347; 85384; 85576; 85576-59; 85610; 85730; 86850; 86900; 86901; 86920; 87641; 93005; 94002; 94640; 94660; 94770; A9270-GY; C1713; C1769; C1894; J0690; J1644; J1940; J2150; J2250; J2370; J2405; J2440; J2720; J2795; J2930; J3010; J3475; J3480; P9045; P9047